=== PATIENT | female | born 1980 | race Caucasian/White ===

== ENCOUNTER → 2016-08-06 | Outpatient (CLI) | payer OTHER ==
--- NOTE | 2016-08-07 08:10 | REP ---
RIGHT SHOULDER SERIES, COMPLETE: 08/06/2016. Clinical history: Shoulder pain. No prior study. There appears to have been prior distal clavicular resection and surgery at the coracoclavicular ligament attachment site. There is a large calcific deposit over the greater tuberosity humeral head suggesting calcific tendinopathy, calcific bursitis. Glenohumeral joint intact. No fracture of the clavicle, scapula, humerus or ribs. IMPRESSION: 1. Calcific tendinopathy, calcific bursitis with postoperative changes at the lateral clavicle and coracoclavicular ligament region. Signed by Duc Burton MD 08/07/2016 08:38 A
== END ==
LOC: M WUC 16:18
PROVIDERS: ATTEND Physician Assistant
DX: M75.31 Calcific tendinitis of right shoulder (principal); M75.51 Bursitis of right shoulder

== ENCOUNTER → 2017-06-21 | Outpatient (REF) | payer OTHER | LOC: M SFHCLERA 09:35 | DX: J02.9 Acute pharyngitis, unspecified (principal) ==

== ENCOUNTER 2017-07-12 06:56 | Emergency (ER) | payer OTHER | END 2017-07-12 08:37 | disposition home or self-care (01) | LOC: M ED 06:56 | DX: S00.03XA Contusion of scalp, initial encounter (principal); V48.5XXA Car driver injured in noncollision transport accident in traffic accident, initial encounter; Y92.410 Unspecified street and highway as the place of occurrence of the external cause; Z88.0 Allergy status to penicillin; Z88.1 Allergy status to other antibiotic agents | CPT/HCPCS: 70450 ==

== ENCOUNTER → 2018-07-11 | Outpatient (REF) | payer OTHER | LOC: M LAB REF 17:31 | PROVIDERS: ATTEND Nurse Practitioner Family | DX: L08.9 Local infection of the skin and subcutaneous tissue, unspecified (principal) ==